=== PATIENT | male | born 1970 | race Caucasian/White ===

== ENCOUNTER → 2016-10-29 | Day surgery (SDC) | payer OTHER ==
[~2016-10-29] VITALS: Ht 180.3 cm; Wt 95.3 kg
[~2016-10-29] MED LIST: KLONOPIN0.5 M1 PO; METHADONE; VENLAFAXINE HCL75 MG PO
--- NOTE | 2016-10-29 09:28 | Operative Report ---
Operative/Inv Procedure Report Surgery Date: 10/29/16 Name of Procedure: Open anterior mesh repair of incisional ventral hernia at umbilicus, 4.3 cm mesh Pre-Operative Diagnosis: Incisional ventral umbilical hernia, incarcerated Post-Operative Diagnosis: Same Estimated Blood Loss: scant Surgeon/Veneer Puller: MATEUSZ RENO,ELEAZAR MARK Anesthesia: general endotracheal tube Operative/Procedure Note Note: Patient was placed on the OR table in the supine position. After successful induction of general anesthesia, another timeout was done, antibiotics given, the abdomen was clipped prepped and draped in the usual sterile fashion. An incision was planned overlying the hernia in the umbilical skin between 6 and 12 :00 on the right, this spot was infiltrated with local anesthetic and then made with a 15 blade. This was deepened with cautery and the herniated and incarcerated fat and overlying sac were dissected circumferentially off the fascia, defining the true edges of the defect. It was oriented horizontally, we then inserted the Ventralex coated 4.3 centimeter mesh underneath the defect using the tails to center it and then closed the defect with interrupted 2-0 Maxon sutures in this case 4, incorporating the mesh with each bite. The subcutaneous layer and Brielle's fascia were reapproximated to cover. The incision was irrigated and then the skin was reapproximated with a running subcuticular 4-0 Biosyn, followed by Mastisol, Steri-Strips Telfa Tegaderm. EBL minimal lap and sponge counts correct wound expectancy clean IV fluids crystalloid complications none patient tolerated the procedure well was awakened extubated returned to the recovery room in satisfactory condition.
== END ==
LOC: STS 02:43
DX: K43.0 Incisional hernia with obstruction, without gangrene (principal); G47.33 Obstructive sleep apnea (adult) (pediatric); Z87.891 Personal history of nicotine dependence
CPT/HCPCS: C1781; J0131; J0690; J1100; J2250; J2405